=== PATIENT | female | born 1980 | race Caucasian/White ===

== ENCOUNTER 2023-02-12 17:11 | Emergency (ER) | payer BC, SELFPAY ==
[2023-02-12 17:31] VITALS: BP 213/125; PULSE 73; RESP 18; TEMP 36.3; O2SAT 99; BMI 42.1
[2023-02-12 19:04] VITALS: BP 208/124; PULSE 76; O2SAT 98
[2023-02-12 19:30] VITALS: BP 182/112; PULSE 80
[2023-02-12 20:09] VITALS: BP 199/105; PULSE 76; RESP 18; O2SAT 98
--- NOTE | 2023-02-12 20:20 | ED_ITS ---
HPI - General Adult General Chief complaint: Hypertension Stated complaint: Hypertension Time Seen by Provider: 02/12/23 19:09 History of Present Illness HPI narrative: This 42-year-old female was sent here from clinic because of elevated blood pressure. The patient states that she feels fine and went to the clinic to consider getting a Mirena placed. The nurse checked her blood pressure which was over 200 for systolic value and refused to do any further work there. The nurse that she needs to come to the ER immediately because of her blood pressure. The patient does not take any medications for blood pressure and states that she has not had a diagnosis of hypertension except when she was it was slightly elevated. She does state that she has some anxiety. Related Data Home Medications Medication Instructions Recorded Confirmed cetirizine 10 mg tablet (Zyrtec) 10 mg PO QDAY PRN 02/12/23 02/12/23 fluticasone propionate 50 1 spray intranasal QDAY 02/12/23 02/12/23 mcg/actuation nasal spray,suspension (Flonase Allergy Relief) Allergies Allergy/AdvReac Type Severity Reaction Status Date / Time No Known Drug Allergies Allergy Verified 02/12/23 15:08 Review of Systems Status of ROS: Reports: 10 or more systems reviewed and unremarkable except as noted in History and below Narrative: Constitutional: No fevers, no weight gain or loss. Eyes: No discharge. No vision changes. HENT: No congestion, no sore throat, no ear pain. Cardiovascular: No chest pain, no palpitations. Respiratory: No shortness of breath, no wheezes, no cough. Gastrointestinal: No abdominal pain, no vomiting, no diarrhea. Genitourinary: No dysuria, no hematuria. Musculoskeletal: Normal range of motion. Skin: No rashes, no pruritis. Neurological: No dizziness, weakness, sensory change, speech change. Endo/Heme/Allergies: No bruising or bleeding. No polydipsia. Pysch: no suicidality, no anxiety, no insomnia. All other systems reviewed and are negative. PFS PFS Social History Smoking Status: Current every day smoker What tobacco products do you use: cigars Do you use any of these nicotine containing products: None Second hand tobacco smoke exposure: Yes How often do you have a drink containing alcohol: 2-3 times a week How many standard drinks containing alcohol do you have on a typical day: 5 or 6 How often do you have six or more drinks on one occasion: Weekly AUDIT-C Alcohol total score: 8 Non-prescribed substance use: denies use service: No Exam Narrative: Exam Narrative: Constitutional: Well-developed, well-nourished, no acute distress. HEENT: Normocephalic, atraumatic. Neck: Normal range of motion. Nontender. Supple. Heart: Intact distal pulses. Lungs: No chest discomfort. No wheezes, rhonchi, or rales. Abdomen: Nontender. Back: Normal range of motion. Extremities: Normal range of motion. No injury. Skin: Intact. No rash. Warm. No erythema or pallor. Neurologic: No altered sensation. No weakness. Alert and oriented. Psychiatric: No suicidality. No depression. No insomnia. Nursing notes and vitals signs are reviewed. Const: Vital Signs, click to edit/add: Vital Signs - 24 hr 02/12/23 17:31 02/12/23 19:04 02/12/23 19:30 Temperature 97.4 F L Pulse Rate [Pulse Oximeter] 73 76 80 Respiratory Rate 18 Blood Pressure [Ri ght Upper Arm] 213/125 H 208/124 H 182/112 H Pulse Oximetry 99 98 Oxygen Delivery Me thod Room Air Room Air 02/12/23 20:09 Temperature Pulse Rate [Pulse Oximeter] 76 Respiratory Rate 18 Blood Pressure [Ri ght Upper Arm] 199/105 H Pulse Oximetry 98 Oxygen Delivery Me thod Room Air Course Vital Signs Vital signs: Initial Vital Signs Temperature 97.4 F L 02/12/23 17:31 Temperature Source Temporal Artery Scan 02/12/23 17:31 Pulse Rate 73 02/12/23 17:31 Pulse Rhythm Regular 02/12/23 17:31 Respiratory Rate 18 02/12/23 17:31 Blood Pressure 213/125 H 02/12/23 17:31 Blood Pressure Mean 154 H 02/12/23 17:31 Blood Pressure Position Sitting 02/12/23 17:31 Pulse Oximetry 99 02/12/23 17:31 Oxygen Delivery Method Room Air 02/12/23 17:31 Vital Signs Temperature 97.4 F L 02/12/23 17:31 Pulse Rate 73 02/12/23 17:31 Respiratory Rate 18 02/12/23 17:31 Blood Pressure 213/125 H 02/12/23 17:31 Pulse Oximetry 99 02/12/23 17:31 Oxygen Delivery Method Room Air 02/12/23 17:31 Temperature 97.4 F L 02/12/23 17:31 Pulse Rate 76 02/12/23 20:09 Respiratory Rate 18 02/12/23 20:09 Blood Pressure 199/105 H 02/12/23 20:09 Pulse Oximetry 98 02/12/23 20:09 Oxygen Delivery Method Room Air 02/12/23 20:09 Medical Decision Making MDM Narrative Medical decision making narrative: This patient feels completely normal and arrives with normal vital signs except for elevated blood pressure. Repeat blood pressure readings range from a systolic value around 180-210. This patient may have need for antihypertensive medications but I explained that this is typically manage by her primary physician as the criteria for establishing this diagnosis involve a couple weeks of time with at least 3 readings when a person feels normal. The patient will follow-up with her primary physician in this regard and is able to check her blood pressure frequently to assist in this diagnosis. Discharge Plan Discharge Clinical Impression: Elevated blood pressure reading Patient Disposition: Home, Self-Care Condition: Stable Additional Instructions: Record blood pressure readings and follow up with primary physician to consider treatment if needed. Return if worsening Prescriptions: No Action cetirizine [Zyrtec] 10 mg tablet 10 mg PO QDAY PRN fluticasone propionate [Flonase Allergy Relief] 50 mcg/actuation spray,suspension 1 spray intranasal QDAY Rx Instructions: administer into each nostril Follow Up/Referrals: Provider,Not a Local [Primary Care Provider] - Stand Alone Forms: [employer] Info Instructions
== END 2023-02-12 20:31 | disposition home or self-care (01) ==
PROVIDERS: Emergency Provider Emergency Medicine Emergency Medical Services
DX: I10 Essential (primary) hypertension (principal)
CPT/HCPCS: 99283; 99284

== ENCOUNTER 2023-03-10 13:50 | Outpatient (CLI) | payer BC, SELFPAY | END 2023-03-10 13:51 | disposition home or self-care (01) | LOC: LKVREF 13:51 | PROVIDERS: Visit Provider Physician Assistant Medical | DX: I10 Essential (primary) hypertension (principal) | CPT/HCPCS: 84443 ==

== ENCOUNTER 2023-04-23 19:39 | Outpatient (CLI) | payer OTHER, SELFPAY ==
--- NOTE | 2023-04-29 09:14 | W.PM.SLEEP ---
Sleep Study Details Details Interpreting Provider: Yoon Date of Sleep Study: 04/23/23 Sleep Study Details: STUDY TYPE:? Home unattended ? BMI:? 41.2 ORDERING PROVIDER:Juan Antonio Izaguirre INDICATION:? Concerns about sleep apnea ? SLEEP SUMMARY:? 487 minutes RESPIRATORY SUMMARY:? AHI 33.7 Low oxygen 64 37.6% of study oxygen less than 90% Snoring 40 % PERIODIC LIMB MOVEMENTS OF SLEEP:? Not recorded during home study CARDIAC:? Range 48-115, mean 81.8 beats per minute IMPRESSION:? Severe obstructive sleep apnea with significant hypo oxygenation RECOMMENDATION: Treatment options include CPAP, weight loss, and possibly airway expansion surgery. CPAP is favored. Once effective therapy is established an overnight oximetry should be performed as the patient's oxygen saturation was below 90% for over 1/3 of the study.
== END 2023-04-23 19:40 | disposition home or self-care (01) ==
LOC: SLEEP 19:40
PROVIDERS: PCP Physician Assistant Medical; Visit Provider Physician Assistant Medical
DX: G47.33 Obstructive sleep apnea (adult) (pediatric) (principal)
CPT/HCPCS: 95806

== ENCOUNTER 2023-05-07 09:40 | Outpatient (CLI) | payer OTHER, SELFPAY | END 2023-05-07 09:41 | disposition home or self-care (01) | LOC: LKVREF 09:41 | PROVIDERS: PCP Physician Assistant Medical; Visit Provider Physician Assistant Medical | DX: I10 Essential (primary) hypertension (principal) | CPT/HCPCS: 80061 ==

== ENCOUNTER 2023-05-28 15:45 | Outpatient (CLI) | payer OTHER, SELFPAY | END 2023-05-28 15:46 | disposition home or self-care (01) | LOC: LKVREF 15:46 | PROVIDERS: PCP Physician Assistant Medical; Visit Provider Physician Assistant Medical | DX: E11.9 Type 2 diabetes mellitus without complications (principal) | CPT/HCPCS: 82043; 82570 ==

== ENCOUNTER 2024-05-14 11:26 | Outpatient (CLI) | payer OTHER, SELFPAY ==
--- NOTE | 2024-05-14 11:30 | CRLHL7_ITS ---
For Patients: As a result of the Century Cures Act, medical imaging exams and procedure reports are released immediately into your electronic medical record. You may view this report before your referring provider. If you have questions, please contact your health care provider. BILATERAL SCREENING MAMMOGRAM WITH COMPUTER-AIDED DETECTION AND TOMOSYNTHESIS TECHNIQUE: CC and MLO views were obtained. These mammographic images have been obtained using full-field digital technique. These mammographic images were interpreted with the benefit of computer-aided detection. Breast Tomosynthesis was used in this interpretation. COMPARISON FILM: Baseline. FINDINGS: There are scattered areas of fibroglandular density. IMPRESSION: There is no radiographic evidence for malignancy. ASSESSMENT: BI-RADS Category 1: Negative RECOMMENDATION: Routine screening mammogram in 1 year. A lay language report of this examination will be provided to the patient. Kam West M.D. Diagnostic Radiologist [email or web address] SP/Dictated by: Kam West MD @ 05/24/2024 8:27:00 AM (Electronically Signed)
== END 2024-05-14 11:27 | disposition home or self-care (01) ==
PROVIDERS: PCP Physician Assistant Medical; Visit Provider Physician Assistant Medical
DX: Z12.31 Encounter for screening mammogram for malignant neoplasm of breast (principal)
CPT/HCPCS: 77063; 77067

== ENCOUNTER 2024-05-17 16:54 | Outpatient (CLI) | payer OTHER, SELFPAY ==
[2024-05-22 05:04] LABS: HPV Source Cervix; HPV, High Risk by TMA Not Detected
== END 2024-05-17 16:55 | disposition home or self-care (01) ==
PROVIDERS: PCP Physician Assistant Medical; Visit Provider Physician Assistant
DX: Z12.4 Encounter for screening for malignant neoplasm of cervix (principal); Z11.51 Encounter for screening for human papillomavirus (HPV)
CPT/HCPCS: 87624; 87625; 88141; 88142

== ENCOUNTER 2024-08-19 12:15 | Outpatient (CLI) | payer OTHER, SELFPAY | END 2024-08-19 12:16 | disposition home or self-care (01) | LOC: NFLDREF 08-31 06:55 | PROVIDERS: PCP Physician Assistant Medical; Referring Provider Physician Assistant Medical; Visit Provider Physician Assistant Medical | DX: Z00.01 Encounter for general adult medical examination with abnormal findings (principal); E11.9 Type 2 diabetes mellitus without complications; I10 Essential (primary) hypertension; Z13.21 Encounter for screening for nutritional disorder; Z13.29 Encounter for screening for other suspected endocrine disorder | CPT/HCPCS: 80053; 80061; 82043; 82570; 82607; 84443 ==